=== PATIENT | female | born 1950 | race Caucasian/White ===

== ENCOUNTER → 2016-08-07 | Outpatient (CLI) | payer OTHER | LOC: CIMAGING 12:02 | DX: Z12.31 Encounter for screening mammogram for malignant neoplasm of breast (principal) | CPT/HCPCS: G0202 ==

== ENCOUNTER → 2017-03-02 | Outpatient (CLI) | payer OTHER | LOC: CIMAGING 12:50 | PROVIDERS: ATTEND Family Medicine | DX: N63.21 Unspecified lump in the left breast, upper outer quadrant (principal) | CPT/HCPCS: 76641-PO; G0206 ==

== ENCOUNTER → 2017-03-08 | Outpatient (CLI) | payer OTHER ==
[~2017-03-08] MED LIST: BUPIVACAINE 0.5% 10 ML SDV ONE; LIDOCAINE 1% 300 MG/30 ML SDV ONE; THROMBIN (BOVINE) 5,000 UNIT VIAL TP ONE
[2017-03-16 15:10] LABS: FIXED IN 10%FORM 6-72HR Yes; FIXED IN 10%FORM W/IN 1 HR Yes
== END ==
LOC: FIMAGING 07:06
PROVIDERS: ATTEND Family Medicine
PROC: 0HBU3ZX Excision of Left Breast, Percutaneous Approach, Diagnostic (ICD-10-PCS; principal; 2017-03-08)
DX: C50.412 Malignant neoplasm of upper-outer quadrant of left female breast (principal)
CPT/HCPCS: G0206

== ENCOUNTER → 2017-03-15 | Outpatient (CLI) | payer OTHER ==
[~2017-03-15] MED LIST changes: -BUPIVACAINE 0.5% 10 ML SDV ONE; +GADOBUTROL 10 ML VIAL IVP ONE; -LIDOCAINE 1% 300 MG/30 ML SDV ONE; -THROMBIN (BOVINE) 5,000 UNIT VIAL TP ONE
== END ==
LOC: FIMAGING 09:14
PROVIDERS: ATTEND Surgery
DX: C50.412 Malignant neoplasm of upper-outer quadrant of left female breast (principal)
CPT/HCPCS: 0159T; 77059; A9585; C8908

== ENCOUNTER 2017-03-19 06:28 | Day surgery (SDC) | payer OTHER ==
[2017-03-19] MEDS ORDERED: LIDOCAINE 1% 300 MG/30 ML SDV ONE ×2 (07:24→11:51)
[2017-03-19] MEDS ORDERED: LR 1,000 ML IV ONE (07:27)
[2017-03-19] MEDS ORDERED: LIDOCAINE 1% 2 ML INJ ID PRN (07:27)
[2017-03-19] MEDS ORDERED: ceFAZolin 2 GM/SWFI 20 ML SYR IVP ONE (07:34)
--- NOTE | 2017-03-19 08:10 | PDHPUP ---
History & Physical Update H&P update statement: This history and physical update is based on an assessment of the patient which was completed after admission or registration (within 24 hours), but prior to the surgery/procedure.
[2017-03-19] MEDS ORDERED: ceFAZolin 2 GM/SWFI 2 GM/20 ML SYR IVP ONE (10:00)
--- NOTE | 2017-03-19 11:12 | PDANEPAE ---
ANE History of Present Illness 66 year old for breast lumpectomy. ANE Past Medical History - Cardiovascular History Hx Hypertension: No Hx Arrhythmias: No Hx Chest Pain: No Hx Coronary Artery / Peripheral Vascular Disease: No Hx CHF / Valvular Disease: No Hx Palpitations: No - Pulmonary History Hx COPD: No Hx Asthma/Reactive Airway Disease: No Hx Recent Upper Respiratory Infection: No Hx Oxygen in Use at Home: No Hx Sleep Apnea: No Sleep Apnea Screening Result - Last Documented: Negative - Neurologic History Hx Cerebrovascular Accident: No Hx Seizures: No Hx Dementia: No - Endocrine History Hx Diabetes: No Hypothyroid: No Hyperthyroid: No Obesity: no - Renal History Hx Renal Disorders: No - Liver History Hx Hepatic Disorders: No - Neurological & Psychiatric Hx Hx Neurological and Psychiatric Disorders: No - Cancer History Hx Cancer: No Cancer History Comment: BREAST CA - Congenital Disorder History Hx Congenital Disorders: No - GI History Hx Gastrointestinal Disorders: No - Other Health History Other Health History: NEG - Chronic Pain History Chronic Pain: No - Surgical History Prior Surgeries: FEMORAL HERNIA REPAIR 20 YRS AGO. C SECTION. BREAST BX 2016 ANE Review of Systems Review of systems is: negative Review of Systems: - Exercise capacity Exercise capacity: >=4 METS METS (RN): 4 METS ANE Patient History - Allergies Allergies/Adverse Reactions: No Known Allergies Allergy (Unverified 03/04/17 09:48) - Home Medications Home medications: home medication list seen and reviewed Home Medications: Tylenol 03/18/17 [Last Taken 03/17/17] Tylenol PM (*) 03/18/17 [Last Taken 03/17/17] Herbals/Supplements -Info Only 03/19/17 [Last Taken 03/18/17] - NPO status NPO Status: no food or drink >8 hours NPO Since - Liquids (Date): 03/19/17 NPO Since - Liquids (Time): 06:00 NPO Since - Solids (Date): 03/18/17 NPO Since - Solids (Time): 19:30 - Anes Hx Anes Hx: no prior problems - Smoking Hx Smoking Status: Never smoked Marijuana use: No - Alcohol Use Alcohol Use: None - Family Anes Hx Family Anes Hx: neg - N/A Family Hx Anesthesia Complications: NEG ANE Labs/Vital Signs - Vital Signs Vital Signs: reviewed preoperatively; see RN documention for details Blood Pressure: 148/77 Heart Rate: 57 Respiratory Rate: 16 O2 Sat (%): 99 Height: 162.56 cm Weight: 55.338 kg ANE Physical Exam - Airway Neck exam: FROM Mallampati Score: Class 1 Mouth exam: normal dental/mouth exam - Pulmonary Pulmonary: no respiratory distress - Cardiovascular Cardiovascular: regular rate and rhythym - ASA Status ASA Status: II ANE Anesthesia Plan Anesthesia Plan: GA w LMA Total IV Anesthesia: No
[2017-03-19] MEDS ORDERED: THROMBIN (BOVINE) 5,000 UNIT VIAL TP ONE (11:51)
[2017-03-19] MEDS ORDERED: BUPIVACAINE 0.5% 30 ML SDV ONE (11:51)
[2017-03-19] MEDS ORDERED: SODIUM BICARBONATE 10 MEQ/10 ML SYR IVP ONE (11:51)
[2017-03-19] MEDS ORDERED: MIDAZOLAM 2 MG/2 ML VIAL IVP ONE (11:57)
[2017-03-19] MEDS ORDERED: PROPOFOL/EMULSION 500 MG/50 ML BOTTLE IV ONE (12:03)
[2017-03-19] MEDS ORDERED: fentaNYL 100 MCG/2 ML INJ ONE (12:05)
[2017-03-19] MEDS ORDERED: ROCURONIUM 50 MG/5 ML VIAL ONE (12:06)
[2017-03-19] MEDS ORDERED: LR 500 ML IV PRN (12:47)
[2017-03-19] MEDS ORDERED: fentaNYL 100 MCG/2 ML INJ IVP PRN (12:47)
[2017-03-19] MEDS ORDERED: NALOXONE HCL 0.4 MG/ML INJ IVP PRN (12:47)
[2017-03-19] MEDS ORDERED: HYDROCODONE/APAP 5/325 TAB PO PRN (12:47)
[2017-03-19] MEDS ORDERED: HYDROmorphONE/DILAUDID 1 MG/ML INJ IVP PRN (12:47)
[2017-03-19] MEDS ORDERED: ONDANSETRON 4 MG/2 ML VIAL IVP PRN (12:47)
[2017-03-19] MEDS ORDERED: KETOROLAC 30 MG/1 ML SDV ONE (12:58)
[2017-03-19] MEDS ORDERED: SUGAMMADEX SODIUM 200 MG/2 ML VIAL IVP ONE (13:00)
--- NOTE | 2017-03-19 13:53 | POSTOPPROG ---
Post Op Note Date of Operation: 03/19/17 Surgeon: Donovan Ybarra Orchestra Leader: Ridge Rizo Anesthesiologist: Dr Langford Anesthesia: GET(General Endotracheal) Pre-op Diagnosis: breast cancer Post-op Diagnosis: same Indication: same Procedure: left axillary SN and excisional breast Bx Findings: lymph node, needle loc with tissue Inf/Abcess present in the surg proc area at time of surgery?: No Depth: Deep Incisional (Fascial) EBL: Minimal Specimen(s): breast tissue and multiple margins, lymph node
[2017-03-19 14:08] VITALS: TEMP 97
[2017-03-19 14:22] VITALS: BP 150/87; PULSE 60; RESP 14; O2SAT 99
--- NOTE | 2017-03-19 16:35 | POSTANESTH ---
Post Anesthetic Evaluation Cardiovascular Status: Normal, Stable, Similar to Pre-Op Cond Respiratory Status: Normal, Stable, Similar to Pre-op Cond. Level of Consciousness/Mental Status: Can Participate in Eval, Alert and Oriented Pain Control: Adequate, Prn Tx Ordered Nausea/Vomiting Control: Adequate, Prn Tx Ordered Complications Possibly Related to Anesthesia: None Noted
--- NOTE | 2017-03-21 06:25 | GOP ---
[f rep st] OPERATIVE REPORT DATE OF OPERATION: 03/19/2017 SURGEON: Donovan Ybarra MD BASTING MARKER: PEDRO Luna. ANESTHESIOLOGIST: Donnie Langford MD. PREOPERATIVE DIAGNOSIS: Left breast cancer. POSTOPERATIVE DIAGNOSIS: Left breast cancer. PROCEDURE PERFORMED: 1. Left needle localization lumpectomy. 2. Left sentinel node biopsy. FINDINGS: The patient was found to have the target lesion and metal clip in the biopsy specimen. Wendell nodes were negative. DESCRIPTION OF PROCEDURE: Patient taken to the operating room, where she received satisfactory general endotracheal anesthesia by Dr. Pichardo, placed in supine position. The left arm outstretched on an arm board, prepped and draped in the usual sterile fashion. Using a gamma probe, the area of the sentinel node was identified. A transverse incision made at the base of the axilla. Dissection extended down through the subcutaneous tissue and the cervical fascia was incised. The gamma probe was used to select the sentinel node which was also a quite palpable node preoperatively. This was dissected free from surrounding structures with some associated adherent to the lymph nodes. Hemostasis was obtained with electrocautery and 3-0 Vicryl ties as well as hemoclips. The specimens were removed and sent to pathology which eventually was returned as negative. The wound was infiltrated with 0.5% Marcaine. Axilla was closed with through Vicryl for the subcutaneous tissue and 4-0 Monocryl subcuticular sutures for the skin. Attention was turned to the needle localization site. A curvilinear incision was made in the upper outer aspect of the left breast. Dissection extended down through the subcutaneous tissue. An elliptical skin incision was taken along with the needle insertion site. A generous biopsy was taken around the tip of the needle. The specimen was removed, hemostasis obtained with electrocautery. The specimen was sent to Pathology. In addition, 5 additional margins were reexcised and specifically identified and sent to Pathology for permanent evaluation. This was done on the superior and inferior sites of medial and lateral sides in the deep side. Hemostasis was then carefully obtained. The wound was closed in layers using 3-0 Vicryl for the breast tissue in an oncoplastic technique. Subcu was closed with interrupted 3-0 Vicryl as well, and the skin with a 4-0 Monocryl subcuticular stitch. The wound was infiltrated with 0.5% Marcaine. Some topical thrombin was placed in the cavity and she was taken to recovery room in satisfactory condition. COMPLICATIONS: There were no complications. /[id number]/MODL MTDD
== END 2017-03-19 15:28 | disposition home or self-care (01) ==
LOC: FSGY 06:28
PROVIDERS: ATTEND Surgery
PROC: 07B60ZX Excision of Left Axillary Lymphatic, Open Approach, Diagnostic (ICD-10-PCS; principal; 2017-03-19 11:00)
PROC: 0HBU0ZZ Excision of Left Breast, Open Approach (ICD-10-PCS; principal; 2017-03-19 11:00)
PROC: 3E0W3KZ Introduction of Other Diagnostic Substance into Lymphatics, Percutaneous Approach (ICD-10-PCS; 2017-03-19 11:00)
DX: C50.912 Malignant neoplasm of unspecified site of left female breast (principal)
CPT/HCPCS: 19301; 38500; 76098; 78195; A9520; J0690; J1885; J2250; J2704; J3010

== ENCOUNTER → 2018-09-12 | Outpatient (CLI) | payer OTHER | LOC: BRMIMAGING 08:18 ==